=== PATIENT | male | born 1980 | race Caucasian/White ===

== ENCOUNTER 2022-10-16 12:13 | Emergency (ER) | payer OTHER, SELFPAY ==
--- NOTE | ~2022-10-16 | US_ITS ---
EXAMINATION: US scrotum doppler DATE: 10/16/2022 13:23 INDICATION: Left scrotal pain and swelling. TECHNIQUE: Grayscale and Doppler ultrasound images of the testes were obtained. COMPARISON: None. FINDINGS: The right testis measures 4.7 x 3.3 x 2.4 cm. The left testis measures 3.9 x 3.2 x 2.5 cm. There is a 3 mm cyst in right testis. There is normal vascular flow to both testes. The right epididy mis is normal with normal vascular flow. The left epididymis demonstrates a 7 mm cyst. Vascularity is normal in the left epididymis.. There are small bilateral hydroceles. No varicocele. IMPRESSION: 1. Small bilateral hydroceles. Reviewed, dictated and finalized at location A.
[2022-10-16 12:13] VITALS: BP 125/78; PULSE 88; RESP 16; TEMP 36.6; O2SAT 96
--- NOTE | 2022-10-16 12:57 | ED.GENADULT ---
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 It started insidiously last night. It was red and swollen at that time. No fevers, chills, N/V or darrhea reported. No trauma either. There is no pain with valsalva or heavy lifting. He has not had sexual activity for some time. Related Data Allergies Allergy/AdvReac Type Severity Reaction Status Date / Time No Known Allergies Allergy Verified 10/16/22 12:38 Review of Systems Review of Systems: All systems reviewed & are unremarkable except as noted in HPI and below Exam Const: General: healthy appearing and no acute distress Nutritional Appearance: well nourished Orientation/consciousness: patient oriented x3 HENMT: Head: normal to inspection Ears: external ears normal Eyes: Conjunctivae: conjunctivae normal Pupils: Equal, round and reactive pupils present EOM: EOMs intact bilaterally Neck: Neck: normal visual inspection Chest: Chest palpation & inspection: normal inspection of the chest Resp: Effort & Inspection: normal respiratory effort Auscultation: clear to auscultation bilaterally Cardio: Rate: regular rate Rhythm: regular rhythm GI: Inspection: non-distended : Other: epididymis was TTP on the left Skin: General skin exam: normal color Neuro: General: patient oriented x3 and moves all extremities Extrem: General: normal to inspection Psych: Mental Status: mental status grossly normal Course Course Emergency Course: Ordered US and labs as below. EXAMINATION: US scrotum doppler DATE: 10/16/2022 13:23 INDICATION: Left scrotal pain and swelling. TECHNIQUE: Grayscale and Doppler ultrasound images of the testes were obtained. COMPARISON: None. FINDINGS: The right testis measures 4.7 x 3.3 x 2.4 cm. The left testis measures 3.9 x 3.2 x 2.5 cm. There is a 3 mm cyst in right testis. There is normal vascular flow to both testes. The right epididymis is normal with normal vascular flow. The left epididymis demonstrates a 7 mm cyst. Vascularity is normal in the left epididymis.. There are small bilateral hydroceles. No varicocele. IMPRESSION: 1.? Small bilateral hydroceles. Given a dose of levofloxacin Vital Signs Vital signs: Vital Signs Temperature 97.8 F 10/16/22 12:13 Pulse Rate 88 10/16/22 12:13 Respiratory Rate 16 10/16/22 12:13 Blood Pressure 125/78 10/16/22 12:13 Pulse Oximetry 96 10/16/22 12:13 Oxygen Delivery Room Air 10/16/22 12:13 Temperature 97.5 F L 10/16/22 14:07 Pulse Rate 63 10/16/22 14:07 Respiratory Rate 16 10/16/22 14:07 Blood Pressure 132/74 10/16/22 14:07 Pulse Oximetry 97 10/16/22 14:07 Oxygen Delivery Room Air 10/16/22 14:07 Medical Decision Making Vital Signs Vital Signs: Vital Signs Temperature 97.8 F 10/16/22 12:13 Pulse Rate 88 10/16/22 12:13 Respiratory Rate 16 10/16/22 12:13 Blood Pressure 125/78 10/16/22 12:13 Pulse Oximetry 96 10/16/22 12:13 Oxygen Delivery Room Air 10/16/22 12:13 Temperature 97.5 F L 10/16/22 14:07 Pulse Rate 63 10/16/22 14:07 Respiratory Rate 16 10/16/22 14:07 Blood Pressure 132/74 10/16/22 14:07 Pulse Oximetry 97 10/16/22 14:07 Oxygen Delivery Room Air 10/16/22 14:07 Lab Data Labs: Lab Results 10/16/22 10/16/22 10/16/22 Range/Units 13:24 13:26 13:28 CSF HIV-1 p24 Ag Scrn Negative (Negative) C.trachomatis RNA (TMA) Pending Hepatitis A IgM Ab Pending Hep Bs Antigen Pending Hep B Core IgM Ab Pending Hepatitis C Antibody Pending Hep C Ab Signal/Cutoff Pending Hep C Ab Comment Pending HIV 1&2 Antibody Rapid Negative (Negative) N.go
[2022-10-16] MEDS: levoFLOXacin 500 MG TABLET PO (13:59)
[2022-10-16 14:07] VITALS: BP 132/74; PULSE 63; RESP 16; TEMP 36.4; O2SAT 97
[2022-10-16 14:17] LABS: HIV 1 P24 AG Negative (Negative); HIV 1/2 AB Negative (Negative)
--- NOTE | 2022-10-20 10:40 | PC.NURSE ---
FINAL T VAGINALIS, RNA RESULTS: NOT DETECTED. NO ACTION NEEDED.
--- NOTE | 2022-10-20 12:19 | PC.NURSE ---
Final Urine results: Negative for C. Trachomatis, and N. Gonorrhoeae. no further action needed.
--- NOTE | 2022-10-20 12:20 | PC.NURSE ---
Final result: T.Vaginalis, not detected, no further action needed.
[2022-10-21 03:15] LABS: Hepatitis A Antibody IgM Nonreactive; Hepatitis B Core Antibody Nonreactive (Nonreactive); Hepatitis B Surface Antigen Nonreactive (Nonreactive); Hepatitis C Signal to Cutoff 0.01 ratio (<1.00); Hepatitis C Virus Antibody Nonreactive (Nonreactive)
== END 2022-10-16 14:30 | disposition home or self-care (01) ==
PROVIDERS: Emergency Provider Family Medicine
DX: N45.1 Epididymitis (principal); N43.3 Hydrocele, unspecified
CPT/HCPCS: 36415; 76870; 80074; 86703; 87491; 87591; 87661; 93976; 99284; A9270

== ENCOUNTER 2023-01-28 12:31 | Emergency (ER) | payer OTHER, SELFPAY ==
--- NOTE | ~2023-01-28 | XR_ITS ---
[[id number] ] INDICATION: Left anterior rib pain TECHNIQUE: Frontal projection of the upper left ribs, frontal projection of the lower left ribs, obli que projection of all the left ribs, frontal inspiratory chest x-ray for interpretation. FINDINGS: There are no displaced rib fractures identified. There are no soft tissue abnormality see n. The lungs are clear. IMPRESSION: 1:No acute displaced rib fractures. Reviewed, dictated and finalized at location A.
[2023-01-28 12:38] VITALS: BP 116/83; PULSE 80; RESP 16; TEMP 36.9; O2SAT 98
[2023-01-28 12:48] VITALS: O2SAT 98
--- NOTE | 2023-01-28 12:52 | ED.CHESTPAIN ---
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 During the adjustment he felt his back pop which felt good but then he had a 2nd pop in his left anterior lateral chest wall that hurt and yelled out in pain. He stated everyone in the office hurting male. said he had an x-ray before the procedure but doubt 1 afterwards. Says it hurts to breathe, blow his nose, take a deep breath, because he as pain on that left side when he does. Denies any other injury. He has taken Tylenol with no help. Rates his pain as a 10 out 10. 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 He has been eating and drinking voiding and stooling fine walking talking singing hearing okay. No rash itching bleeding bruising dizziness or lightheadedness, problems voiding or stooling, swelling lumps or bumps cough fever sore throat runny nose or any other complaints. Related Data Allergies Allergy/AdvReac Type Severity Reaction Status Date / Time No Known Allergies Allergy Verified 01/28/23 12:39 Review of Systems Review of Systems: All systems reviewed & are unremarkable except as noted in HPI and below Exam Narrative: White male patient With mild distress.? Head normocephalic, atraumatic.? Eyes conjunctiva pink sclera nonicteric.? Extraocular movements are intact.? Ears externally normal.? Oropharynx is clear with moist mucous membranes without exudates.? Neck is supple nontender no lymphadenopathy.? Back is nontender.? Lungs are clear.? Heart is regular rate and rhythm without murmurs gallops or rubs.? Chest wall left anterior wall is tender, without crepitation.? Abdomen is soft and nontender no hepatosplenomegaly or masses no CVA tenderness no abdominal bruits.? Extremities no cyanosis clubbing or edema.? Skin is warm and dry without rashes or lesions.? Neurological patient is alert and oriented x4.? Motor and sensory grossly intact.? Gait is normal. Course Vital Signs Vital signs: Vital Signs Temperature 36.9 C 01/28/23 12:38 Pulse Rate 80 01/28/23 12:38 Respiratory Rate 16 01/28/23 12:38 Blood Pressure 116/83 01/28/23 12:38 Pulse Oximetry 98 01/28/23 12:38 Oxygen Delivery Room Air 01/28/23 12:38 Temperature 36.9 C 01/28/23 12:38 Pulse Rate 80 01/28/23 12:38 Respiratory Rate 16 01/28/23 12:38 Blood Pressure 116/83 01/28/23 12:38 Pulse Oximetry 98 01/28/23 12:48 Oxygen Delivery Room Air 01/28/23 12:48 MDM - Chest Pain MDM Narrative Medical decision making narrative: Patient placed in room 2 history and physical were performed. Chest x-ray and left ribs were done which showed no fracture or abnormality. He is given Toradol 30 mg IM. Independent Historian: ? Patient Differential Dx includes but not limited to: fracture dislocation chest wallcontusion, pulmonary contusion, pneumothorax Medications were Reviewed:? Tylenol ? Medications treatments given: Toradol 30 mg IM Independently Interpreted by me:? chest x-ray and left ribs was negative for fracture As independently interpreted by me. Radiology report was the same.? External Source Review:?? [place] prescription monitoring program on 01/10/2023 showed he got Newfane 10s [address] Mullen dentismaría elena Medical conditions/social Situation Impacting Patients Care:?? Shared decision Making:? Evaluation was discussed with patient all questions were asked and answered patient agreed with the plan. patient will use ice packs and or low heating pad for 20 minutes ibuprofen 600 mg 3 times a day and [place] 5 4 times a day as needed. He would return to work the or the
[2023-01-28] MEDS: KETOROLAC 30 MG/ML VIAL (*BKC) IM (13:02)
[2023-01-28 13:29] VITALS: BP 123/87; PULSE 62; RESP 14; O2SAT 99
== END 2023-01-28 13:51 | disposition home or self-care (01) ==
PROVIDERS: Emergency Provider Emergency Medicine
DX: S29.011A Strain of muscle and tendon of front wall of thorax, initial encounter (principal); X50.9XXA Other and unspecified overexertion or strenuous movements or postures, initial encounter
CPT/HCPCS: 71101; 96372; 99283; J1885

== ENCOUNTER 2024-06-27 08:04 | Emergency (ER) | payer OTHER, SELFPAY ==
--- NOTE | ~2024-06-27 | XR_ITS ---
Clinical Indication: Shortness of breath, cough PA and lateral views of the chest: Comparison: None Findings: The lungs are clear, without evidence of focal consolidation or pleural effusion. Cardiome diastinal silhouette is within normal limits. Bones and soft tissues are unremarkable. Impression: Normal chest. Reviewed, dictated and finalized at [facility]. SBOW MAKER Impression: Normal chest.
[2024-06-27 08:05] VITALS: BP 131/87; PULSE 87; RESP 20; TEMP 36.6; O2SAT 100
--- NOTE | 2024-06-27 08:10 | ED_ITS ---
HPI - URI/Sore Throat General Chief Complaint: Upper Respiratory Infection Stated Complaint: syncope, cold symptoms Time Seen by Provider: 06/27/24 08:09 Source: patient Mode of arrival: ambulatory Limitations: no limitations History of Present Illness HPI Narrative: Patient is a 44-year-old male with no medical history having a cough and upper respiratory congestion for the past 2 weeks. He feels like he is getting better at this time but came in for further evaluation of his cough. He had a small syncopal episode last night after choking on some fluids and coughing. He had LOC times 1-2 seconds. No injuries. No seizures. He is having lots of facial pain and sinus discomfort. MD elicited complaint: cough, rhinorrhea, nasal congestion and sinus pain Pertinent past history: other ( None) Onset (ago): week(s) (2) Consistency: constant Severity: mild Pain scale (0-10): 1 Description of mucous: clear Able to tolerate fluids by mouth: Yes Exacerbating factors: nothing Relieving factors: nothing Context: sick contacts Associated symptoms: myalgias, headache, rhinorrhea, nasal congestion, cough, s hortness of breath ( exertional), nausea and diarrhea Treatments prior to arrival: none Related Data Allergies Allergy/AdvReac Type Severity Reaction Status Date / Time No Known Allergies Allergy Verified 01/28/23 12:39 Review of Systems Review of Systems: All systems reviewed & are unremarkable except as noted in HPI and below Constitutional: Constitutional: Reports no additional constitutional complaints Eyes: Eyes: Reports no additional eye complaints ENT: Reports system reviewed and no additional complaints, except as documented Cardiovascular: Cardiovascular: Reports no additional cardiovascular complaints Respiratory: Respiratory: Reports no additional respiratory complaints Gastrointestinal: Gastrointestinal: Reports no additional gastrointestinal complaints Genitourinary: Genitourinary: Reports no additional male genitourinary complaints Musculoskeletal: Musculoskeletal: Reports no additional musculoskeletal complaints Integumentary/Breasts: Skin/Breast: Reports system reviewed and no additional complaints, except as docu Neurologic: Reports system reviewed and no additional complaints, except as documented Psychiatric: Psychiatric: Reports no additional psychiatric complaints Endocrine: Endocrine: Reports no additional endocrine complaints Hematologic/Lymphatic: Hematologic/Lymphatic: Reports no additional hematologic/lymphatic complaints Allergic/Immunologic: Allergic/Immunologic: Reports no additional allergic/immunologic complaints Exam Const: General: healthy appearing Nutritional Appearance: well nourished Orientation/consciousness: patient oriented x3 Limitations: no limitations HENMT: Head: normal to inspection Ears: external ears normal Face/Nose/Sinus: Normal external nose present Eyes: Conjunctivae: conjunctivae normal Pupils: Equal, round and reactive pupils present EOM: EOMs intact bilaterally Neck: Neck: normal visual inspection Chest: Chest palpation & inspection: normal inspection of the chest Resp: Effort & Inspection: normal respiratory effort and not labored Auscultation: clear to auscultation bilaterally and no crackles Cardio: Rate: regular rate Rhythm: regular rhythm Heart sounds: no murmurs GI: Inspection: non-distended GI Palp: Yes Soft to palpation and No Tenderness to palpation present (GI) Auscultation: normal bowel sounds : General: Yes bladder normal to palpation Back/Spine/Pelvis: Back: no CVA tenderness Skin: General skin exam: normal color Rashes: no rashes Wounds: no wounds Neuro: General: patient oriented x3 Cranial nerves: Yes Nystagmus not present Speech: normal speech Extrem: General: normal to inspection Psych: Mental Status: mental status grossly normal Affect: normal affect Attitude: cooperative Course Vital Signs Vital signs: Vital Signs Temperature 36.6 C 06/27/24 08:05 Pulse Rate 87 06/27/24 08:05 Respiratory Rate 20 06/27/24 08:05 Blood Pressure 131/87 06/27/24 08:05 Pulse Oximetry 100 06/27/24 08:05 Oxygen Delivery Room Air 06/27/24 08:05 Temperature 36.6 C 06/27/24 08:05 Pulse Rate 87 06/27/24 08:05 Respiratory Rate 20 06/27/24 08:05 Blood Pressure 131/87 06/27/24 08:05 Pulse Oximetry 100 06/27/24 08:05 Oxygen Delivery Room Air 06/27/24 08:05 MDM - URI/Sore Throat MDM Narrative Medical decision making narrative: patient is a 44-year-old male with upper respiratory complaints for the past 2 weeks. He also had syncope x1 yesterday. We will do a COVID panel swab at this time. We will do a chest x-ray. No major concern for the syncope which was related to a choking event and coughing. Vasovagal consideration likely for his syncopal episode. Lab Data Attestation: I reviewed the patient's lab results. Labs: Lab Results 06/27/24 Range/Units 08:10 Influenza A (RT-PCR) Negative (Negative) Influenza B (RT-PCR) Negative (Negative) RSV (RT-PCR) Negative (Negative) SARS-CoV-2 RNA (RT-PCR) Negative (Negative) Imaging Data Attestation: I personally reviewed and interpreted this imaging study as follows: Radiologist's impression: Chest x-ray is negative for acute process Discharge Plan Discharge Clinical Impression: Bronchitis, Vasovagal episode Patient Disposition: Home, Self-Care Condition: Stable Instructions: Antibiotic Form, Acute Bronchitis (ED) Additional Instructions: please follow-up with the primary doctor in the next week. Further workup needs to be done if you have another passing out episode. Patient Language: Haitian Prescriptions: New azithromycin 250 mg tablet See Rx Instructions .ROUTE .COMPLEX Qty: 6 0RF Rx Instructions: For 250 mg dose pack: take 500 mg today (day 1), then 250 mg for 4 days (days 2-5) prednisone 20 mg tablet 40 mg PO DAILY 3 Days Qty: 6 0RF Follow-up/Referrals: UNKNOWN,DOCTOR [Primary Care Provider] - Stand Alone Forms: Work/School Release IP Time of Disposition: 09:02
[2024-06-27 08:50] LABS: Influenza A QL RT-PCR Negative (Negative); Influenza B QL RT-PCR Negative (Negative); RSV RNA, RT-PCR Negative (Negative); SARS-CoV-2 RNA PCR Negative (Negative)
[2024-06-27 09:10] VITALS: BP 130/78; PULSE 79; RESP 20; TEMP 36.6; O2SAT 98
== END 2024-06-27 09:10 | disposition home or self-care (01) ==
PROVIDERS: Emergency Provider Emergency Medicine
DX: J40 Bronchitis, not specified as acute or chronic (principal); R55 Syncope and collapse; Z20.822 Contact with and (suspected) exposure to COVID-19
CPT/HCPCS: 71046; 87637; 99283

== ENCOUNTER 2024-09-08 08:06 | Emergency (ER) | payer OTHER, SELFPAY ==
--- NOTE | ~2024-09-08 | XR_ITS ---
Clinical Indication: Chest congestion PA and lateral views of the chest: Comparison: 06/27/2024 Findings: The lungs are clear, without evidence of focal consolidation or pleural effusion. Cardiome diastinal silhouette is within normal limits. Bones and soft tissues are unremarkable. Impression: Normal chest. Reviewed, dictated and finalized at location . Impression: Normal chest.
[2024-09-08 08:09] VITALS: BP 127/82; PULSE 74; RESP 20; TEMP 36.6; O2SAT 100
--- NOTE | 2024-09-08 08:09 | ED_ITS ---
HPI - URI/Sore Throat General Chief Complaint: Upper Respiratory Infection Stated Complaint: cough, congestion Time Seen by Provider: 09/08/24 08:08 Source: patient Mode of arrival: ambulatory Limitations: no limitations History of Present Illness HPI Narrative: 44 years old white male, healthy otherwise, no previous medical issue not on any medications drove himself to the emergency room complaining of nasal c ongestion, postnasal discharge, slight sore throat, productive cough, hoarseness of voice, and chest congestion for the last 2-3 days. Patient denies sick contact. Patient smokes cigarettes. He denies any chest pain or shortness of breath Related Data Allergies Allergy/AdvReac Type Severity Reaction Status Date / Time No Known Allergies Allergy Verified 09/08/24 08:08 Review of Systems Review of Systems: All systems reviewed & are unremarkable except as noted in HPI and below Exam Narrative: General appearance: Well-developed, well-nourished, intermittent productive cough Skin: Normal color Head: Normocephalic, nontraumatic Eyes: Clear conjunctiva ENT: Oropharynx normal, ears normal, nose normal Neck: Supple, nontender Chest and respiratory: Airway patent, no respiratory distress, no accessory muscle use, few scattered rhonchi Heart: Regular rate/rhythm Abdomen: Soft, nontender, no organomegaly, quiet bowel sounds V Musculoskeletal: Normal range of motion, nontender back Neurologic: Alert and oriented ?3, [employer] is normal as tested, no gross motor deficit Course Vital Signs Vital signs: Vital Signs Temperature 36.6 C 09/08/24 08:09 Pulse Rate 74 09/08/24 08:09 Respiratory Rate 20 09/08/24 08:09 Blood Pressure 127/82 09/08/24 08:09 Pulse Oximetry 100 09/08/24 08:09 Oxygen Delivery Room Air 09/08/24 08:09 Temperature 36.6 C 09/08/24 08:09 Pulse Rate 74 09/08/24 08:09 Respiratory Rate 20 09/08/24 08:09 Blood Pressure 127/82 09/08/24 08:09 Pulse Oximetry 100 09/08/24 08:15 Oxygen Delivery Room Air 09/08/24 08:15 MDM - URI/Sore Throat MDM Narrative Medical decision making narrative: differential diagnosis include upper respiratory infection, sinusitis, bronchitis Chest x-ray showed no acute abnormalities EKG showed normal sinus rhythm Diagnosis :upper respiratory infection, bronchitis Discharged on doxycycline, albuterol, prednisone and Flonase. Differential Diagnosis Differential diagnosis: Likely upper respiratory infection, sinusitis, viral infection, bronchitis and pharyngitis Lab Data Labs: Lab Results 09/08/24 Range/Units 08:12 Influenza A (RT-PCR) Pending Influenza B (RT-PCR) Pending RSV (RT-PCR) Pending SARS-CoV-2 RNA (RT-PCR) Pending Imaging Data Radiologist's impression: Impressions Chest X-Ray 09/08/24 08:38 Impression: Normal chest. ECG Data EKG #1: Attestation: I personally reviewed and interpreted this ECG as follows: ECG completion date: 09/08/24 Interpretation: normal sinus rhythm at 64 beats per minute, normal EKG Critical Care Time Critical Care Time Critical Care Time: No Discharge Plan Discharge Clinical Impression: Upper respiratory infection, Bronchitis Patient Disposition: Home Condition: Stable Instructions: Antibiotic Form, How to Stop Smoking (ED), Sinusitis (ED), Acute Bronchitis (ED) Additional Instructions: Return if symptoms are worsening , call your family physician for appointment, take Tylenol as as needed for aches and pain, continue home medications. Patient Language: Kazakh Prescriptions: New doxycycline hyclate 100 mg capsule 100 mg PO BID Qty: 20 0RF albuterol-budesonide 90-80 mcg/actuation HFA aerosol inhaler 2 inh inhalation QID PRN (Reason: shortness of breath) Qty: 10.7 0RF prednisone 20 mg tablet 40 mg PO DAILY 5 Days Qty: 10 0RF fluticasone propionate [Flonase Allergy Relief] 50 mcg/actuation spray,suspension 1 spray intranasal BID Qty: 36.4 0RF Rx Instructions: administer into each nostril No Action azithromycin 250 mg tablet See Rx Instructions .ROUTE .COMPLEX Qty: 6 0RF Rx Instructions: For 250 mg dose pack: take 500 mg today (day 1), then 250 mg for 4 days (days 2-5) prednisone 20 mg tablet 40 mg PO DAILY 3 Days Qty: 6 0RF Follow-up/Referrals: UNKNOWN,DOCTOR [Primary Care Provider] -
--- NOTE | 2024-09-08 08:12 | ECG_ITS ---
Test Date: 2024-09-08 08:37:03 Measurements Intervals Thompson Rate: 64 P: 62 PA: 157 QRS: 54 QRSD: 105 T: 48 QT: 380 QTc: 393 Interpretive Statements SINUS RHYTHM No previous ECG available for comparison Electronically Signed On 09-08-2024 10:58:28 CDT by Anmol Morrison M.D.
[2024-09-08 08:15] VITALS: O2SAT 100
[2024-09-08 08:30] VITALS: BP 121/84; PULSE 71; RESP 16; O2SAT 100
[2024-09-08 08:49] VITALS: BP 134/89; PULSE 68; RESP 17; TEMP 36.6; O2SAT 99
[2024-09-08 08:54] LABS: Influenza A QL RT-PCR Negative (Negative); Influenza B QL RT-PCR Negative (Negative); RSV RNA, RT-PCR Negative (Negative); SARS-CoV-2 RNA PCR Negative (Negative)
== END 2024-09-08 08:49 | disposition home or self-care (01) ==
LOC: CHSED 09:17
PROVIDERS: Emergency Provider Emergency Medicine; PCP Family Medicine
DX: J06.9 Acute upper respiratory infection, unspecified (principal); J40 Bronchitis, not specified as acute or chronic; Z20.822 Contact with and (suspected) exposure to COVID-19
CPT/HCPCS: 71046; 87637; 93005; 99283